=== PATIENT | female | born 1980 | race Caucasian/White ===

== ENCOUNTER → 2024-09-13 13:30 | Outpatient (AMB) | payer OTHER, SELFPAY ==
--- NOTE | 2024-09-13 14:00 | MHC.OFFWIV ---
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 She states that about one-week ago, she had what felt like a calf cramp, however it did not subside quickly, and instead just slowly resolved and dulled in intensity over time. Over the last several days, swelling and tenderness has increased. She denies any injuries, trauma, respiratory issues, fevers, or recent illnesses. Denies any new medications. [facility] Social History Patient Tobacco Use Status: Never used Tobacco Review of Systems Const All systems reviewed & are unremarkable except as noted in HPI and below Physical Exam Vital Signs: Last Vital Signs Pulse 103 H 09/13/24 14:05 BP 128/90 H 09/13/24 14:05 Pulse Ox 98 09/13/24 14:05 Oxygen Delivery Method Room Air 09/13/24 14:05 Const General: cooperative, healthy appearing and no acute distress Nutritional Appearance: obese Limitations: no limitations HEENT Head: Yes normal to inspection Ears: hearing grossly normal bilaterally Resp Effort & Inspection: normal respiratory effort Auscultation: clear to auscultation bilaterally Cardio Rate: regular rate Rhythm: regular rhythm Skin General skin exam: no rashes or lesions noted Extrem Other: Calf circumference right: 50 cm, left: 48cm General: Yes full ROM, Yes capillary refill normal, Yes no joint enlargement, Yes calf tenderness (right, +homans sign right) and Yes edema (nonpitting, RLE) Psych Appearance: grossly normal Mental Status: mental status grossly normal Speech and movement: Normal speech and movement present Assessment & Plan Assessment & Plan (1) Pain and swelling of lower extremity: Code(s): M79.606 - Pain in leg, unspecified; M79.89 - Other specified soft tissue disorders Qualifiers: Laterality: right Qualified Code(s): M79.604 - Pain in right leg; M79.89 - Other specified soft tissue disorders Plan: Ultrasound ordered to rule out DVT on that right LE. Patient will have ultrasound today, and I will follow up once results are received. Discussed with patient indications for this imaging, which she understands. Patient and her aunt who is present at visit both verbalize understanding and agree to plan. Orders: Orders US venous duplex LE RT Today M79.606 - Pain in leg, unspecified, M79.89 - Other specified soft tissue disorders Coding Level of Care Code Est Pt Level 4 (79304) Diagnoses Pain and swelling of right lower extremity M79.604; M79.89 Laterality: right
[2024-09-13 14:05] VITALS: BP 128/90; PULSE 103; O2SAT 98
== END ==
PROVIDERS: PCP Internal Medicine; Visit Provider Nurse Practitioner Family
DX: M79.604 Pain in right leg (principal); M79.89 Other specified soft tissue disorders

== ENCOUNTER → 2024-09-13 13:30 | Outpatient (BNVA) | payer OTHER, SELFPAY | PROVIDERS: PCP Internal Medicine; Visit Provider Nurse Practitioner Family ==

== ENCOUNTER 2024-09-13 14:55 | Outpatient (REF) | payer OTHER, SELFPAY ==
--- NOTE | ~2024-09-13 | US_ITS ---
EXAMINATION: US TRIPLEX LOWER EXTREMITY, RIGHT CLINICAL INFORMATION: Right lower extremity swelling and pain. COMPARISON: None available. TECHNIQUE: Color-flow triplex imaging with spectral analysis and compression Doppler were performed on the right lower extremity. FINDINGS: There is occlusive thrombus which is noncompressible in the right femoral vein, extending through the popliteal vein, to involve the posterior tibial veins and peroneal vein. The common femoral vein and profunda femoral vein are patent. There is no Rodriguez's cyst. US/US venous duplex LE RT IMPRESSION: 1. POSITIVE DVT in the right lower extremity involving the right femoral vein through the popliteal vein to involve the deep calf veins. Technologist informed Dr. Payne from the provider's office at 3:15 PM, 09/13/2024. Patient was advised to proceed to the emergency department for treatment. Electronically signed by: Bishop Quinones MD 09/13/2024 03:32 PM EDT
== END 2024-09-13 14:56 | disposition home or self-care (01) ==
LOC: HO.HMGCX 14:55
PROVIDERS: Visit Provider Nurse Practitioner Family
DX: R60.0 Localized edema (principal); M79.604 Pain in right leg
CPT/HCPCS: 93971

== ENCOUNTER → 2024-09-13 14:58 | Outpatient (BNV) | payer OTHER, SELFPAY | PROVIDERS: Visit Provider Radiology Diagnostic Radiology | DX: I82.411 Acute embolism and thrombosis of right femoral vein (principal); I82.431 Acute embolism and thrombosis of right popliteal vein; I82.461 Acute embolism and thrombosis of right calf muscular vein | CPT/HCPCS: 93971 ==

== ENCOUNTER 2024-09-17 13:12 | Outpatient (AMB) | payer OTHER, SELFPAY ==
--- NOTE | 2024-09-17 13:11 | A.OFFPC_ITS ---
Vital Signs 09/17/24 13:17 09/17/24 14:02 Height 5 ft 4 in Weight 113.398 kg BMI 42.9 BP 118/90 H 128/88 Pulse 94 Temp 98.6 F Temp Source Temporal Artery Scan Pulse Oximetry (%) 97 Oxygen Delivery Method Room Air Intake Visit Reasons: ED [facility] Finished Goods Inspector Required: No Accompanied by: Spouse Allergies No Known Allergies Allergy (Verified 09/17/24 13:16) HPI HPI Comments History of Present Illness Details 43 year old female with history of mild intermittent asthma with class III obesity presents to the office today accompanied by her for ER follow up. She reports that a little over a week ago having a cramping aure horse sensation in the RLE- a tension that wouldn't release. Several days later the pain persisted and was having difficulty walking with increased swelling and re dness in the distal around the ankle. Was seen at urgent care and U/S was ordered confirming presence of extensive occlusive DVT of the femoral vein into the calf veins. No personal history of DVT but reports her maternal grandmother had multiple DVTs and PEs and was on lifelong coumadin. She is unsure if her grandmother underwent workup for clotting disorders. She denies any known personal history of clotting disorders. No recent travel or surgeries. No OCPs in over 10-15 years. Never a smoker. She is morbidly obese and works a sedentary job. She is aware that weight loss efforts should be pursued. Her is reporting noticing snoring and apneic episodes while sleeping in the patient. She tells me she had a URI about a week and a half ago and was using her albuterol inhaler but states only uses this when sick as she was short of breath. However, this has resolved though does still have a dry cough. No palpitations, lightheadednes, or chest pain. No fevers or chills. [facility] Medical History (Updated 09/17/24 @ 14:02 by LOLITA Jaeger) Class III morbid obesity with body mass index (BMI) of 40.0 to 49.9 DVT (deep venous thrombosis) Social History Patient Tobacco Use Status: Never used Tobacco Review of Systems Const All systems reviewed & are unremarkable except as noted in HPI and below Physical exam (Primary Care) Vital Signs: Last Vital Signs Temp 98.6 F 09/17/24 13:17 Pulse 94 09/17/24 13:17 BP 118/90 H 09/17/24 13:17 Pulse Ox 97 09/17/24 13:17 Oxygen Delivery Method Room Air 09/17/24 13:17 BMI result Body Mass Index 42.9 Tobacco/Smoking Status: Tobacco use Status Patient Tobacco Use Status Never used Tobacco 09/17/24 13:12 Coding Level of Care Code New Pt Level 4 (82797) Complex EM visit Add On G2211 Diagnoses DVT (deep venous thrombosis) I82.409 Class III morbid obesity with body mass index (BMI) of 40.0 to 49.9 E66.813 Snoring R06.83 Elevated blood pressure reading R03.0 Assessment & Plan Assessment & Plan (1) DVT (deep venous thrombosis): Code(s): I82.409 - Acute embolism and thrombosis of unspecified deep veins of unspecified lower extremity Category: Medical Plan: ED notes reviewed including provider note, U/S. Continue ELiquis 10mg BID for a total of 7 days, then 5mg BID. Possible factor provoking DVT include morbid obesity and sedentary job. However has positive FH of Multiple DVT and PE in maternal grandmother. Referred to hematology for further evaluation and m anagement and determination of duration of therapy and recommendation for further intervention if indicated. (2) Class III morbid obesity with body mass index (BMI) of 40.0 to 49.9: Code(s): E66.813 - Obesity, class 3 Category: Medical Plan: BMI 42.9. Discussed the importance of weight loss efforts to decrease morbidity. Discussed healthy diet and exercise. To be reassed at follow up visit/annual physical exam. (3) Snoring: Code(s): R06.83 - Snoring Category: Medical Plan: Concern for DELMER. Referred for sleep study. (4) Elevated blood pressure reading: Code(s): R03.0 - Elevated blood-pressure reading, without diagnosis of hypertension Category: Medical Plan: Multiple episodes of uncontrolled diastiolic BP. Repeat BP in the office today 128/88. Will hold on antihypertensive therapy at this time. Continue working on lifestyle modification. Also assess for undiagnosed DELMER. Will reassess at physical exam in several weeks. If BP remains uncontrolled, will initiate antihypertensive agent. Plan Follow up for annual physical exam with labs completed prior to visit. Weight loss efforts encouraged. Referred to heme and for sleep study Orders: Orders RT home sleep study Today R06.83 - Snoring, Z00.00 - Encounter for general adult medical examination without abnormal findings Basic Metabolic Panel Today Z00.00 - Encounter for general adult medical examination without abnormal findings Complete Blood Count Auto Diff Today Z00.00 - Encounter for general adult medical examination without abnormal findings Vitamin D 25-OH Total Today Z00.00 - Encounter for general adult medical examination without abnormal findings Hemoglobin A1c Today Z00.00 - Encounter for general adult medical examination without abnormal findings Lipid Panel Today Z00.00 - Encounter for general adult medical examination without abnormal findings Liver Panel Today Z00.00 - Encounter for general adult medical examination without abnormal findings TSH reflex Free T4 Today Z00.00 - Encounter for general adult medical examination without abnormal findings Referrals Hematology & Oncology Referral I82.409 - Acute embolism and thrombosis of unspecified deep veins of unspecified lower extremity, Z82.49 - Family history of ischemic heart disease and other diseases of the circulatory system
[2024-09-17 13:17] VITALS: BP 118/90; PULSE 94; TEMP 37; O2SAT 97; BMI 42.9
[2024-09-17 14:02] VITALS: BP 128/88
== END 2024-09-17 13:41 | disposition home or self-care (01) ==
LOC: HO.HMCHD 13:12
PROVIDERS: PCP Internal Medicine; Visit Provider Physician Assistant
DX: I82.409 Acute embolism and thrombosis of unspecified deep veins of unspecified lower extremity (principal); E66.813 Obesity, class 3; R06.83 Snoring; R03.0 Elevated blood-pressure reading, without diagnosis of hypertension

== ENCOUNTER → 2024-10-23 11:31 | Outpatient (BNV) | payer OTHER, SELFPAY | PROVIDERS: PCP Internal Medicine; Referring Provider Internal Medicine; Visit Provider Internal Medicine | DX: I82.401 Acute embolism and thrombosis of unspecified deep veins of right lower extremity (principal) | CPT/HCPCS: 99204; G2211 ==

== ENCOUNTER → 2024-12-03 13:51 | Outpatient (REF) | payer OTHER, SELFPAY | LOC: HO.SL 13:51 | PROVIDERS: PCP Internal Medicine; Visit Provider Physician Assistant | DX: G47.33 Obstructive sleep apnea (adult) (pediatric) (principal); R06.83 Snoring; Z00.00 Encounter for general adult medical examination without abnormal findings; G47.13 Recurrent hypersomnia | CPT/HCPCS: 95806 ==

== ENCOUNTER → 2024-12-03 13:58 | Outpatient (BNV) | payer OTHER, SELFPAY | PROVIDERS: PCP Internal Medicine; Visit Provider Internal Medicine | DX: G47.13 Recurrent hypersomnia (principal); R06.83 Snoring | CPT/HCPCS: 95806 ==

== ENCOUNTER 2025-01-07 09:22 | Outpatient (AMB) | payer OTHER, SELFPAY ==
--- NOTE | 2025-01-07 09:26 | A.OFFPC_ITS ---
Vital Signs 01/07/25 09:29 Height 5 ft 4 in Weight 113.398 kg BMI 42.9 BP 112/86 Pulse 99 Pulse Source Pulse Oximeter Temp 98.2 F Temp Source Temporal Artery Scan Pulse Oximetry (%) 97 Oxygen Delivery Method Room Air Intake Visit Reasons: Annual Bearingizer Required: No Accompanied by: Self / Same As Patient Allergies No Known Allergies Allergy (Verified 01/07/25 09:26) Medication List - Last Reconciled 01/07/25 by LOLITA Jaeger albuterol sulfate 90 mcg/actuation 90 mcg inhalation DAILY apixaban (Eliquis) 5 mg PO BID Tobacco use date assessed: 01/07/25 Dental Screening Dental Screen Date: 01/07/25 Did you have a dental visit in the last 12 months?: No Did you have a dental problem in the last 6 months where you did not have access to dental care?: No Was dental information given to patient?: No HPI HPI Comments History of Present Illness Details 43 year old female with history of mild intermittent asthma with class III obesity presents to the office today for management of chronic conditions and for annual physical exam. Works for [employer], 2 days at home and 3 days in the office. No alcohol use. No drug use. No history of cigarette smoking. LLE DVT- Dx 09/2024. U/S was ordered confirming presence of extensive occlusive DVT of the femoral vein into the calf veins. No personal history of DVT but reports her maternal grandmother had multiple DVTs and PEs and was on lifelong coumadin. Following with Hematology. Risk factors include sedentary lifestyle and obesity. She will undergoing thrombophilia testing when she is able to interrupt anticoagulation briefly in a few months hematology recommending full anticoagulation for 6 months, then can be decreased to prophylactic dose. Mild intermittent asthma-no recent exacerbation. Using albuterol inhaler Snoring-sleep study performed 12/16 showing mild obstructive sleep apnea with AHI 7.2. No nocturnal hypoxemia. For now, recommend conservative measures such as weight reduction and position therapy. May consider CPAP in the future if developed and associated comorbid condition. Class III obesity-no formal exercise. Often forgets to eat due to being busy. Concerns: none Health maintenance: Last screening mammogram 11/2024 there was scattered areas of fibroglandular density. Dx mammo and U/S performed and will be requested. Pt reports normal results Due for colonoscopy at age 44 Overdue for PHARMACY AFFAIRS ASSISTANT/pap smear Eye exam every 1-2 years Dentist twice annually Reviewed past medical, surgical, social, family history ROS: General: No fevers, malaise, unintentional weight loss HEENT: No blurred vision, diplopia. No sore throat, nasal congestion, rhinorrhea, sinus pain, ear pain. No hearing loss. Neck - no adenopathy Cardiovascular: No chest pain, palpitations, or leg edema Respiratory: No shortness of breath, wheezing, cough Breast: No pain, palpable lumps, nipple inversion GI: No dysphagia, odynophagia, globus sensation. No abdominal pain, nausea, vomiting, diarrhea, constipation, melena, hematochezia : No dysuria, hematuria, increased urinary frequency, decreased urinary output. PHARMACY AFFAIRS ASSISTANT: No abn vaginal bleeding or discharge MSK: No myalgia, back pain, arthralgias Neuro: No headaches, weakness, paresthesias Psych: no depression/anxiery. No AH/VH. No SI/HI Skin: No rashes or lesions tonsillitis3+, crypts EXAM: Constitutional - Awake and Alert, No apparent distress Eyes - PERRLA, EOMI. Anicteric Ears - external ears normal, canals clear, TMs intact and pearly medellin with good cone of light Nose- septum midline, nares clear, no sinus tenderness Mouth/throat- mucosa moist, tongue and uvula midline, no erythema/edema. 3+ tonsillar enlargement with crypts noted but no stones Neck-trachea midline, thyroid symmetric without palpable nodules, no adenopathy Cardiovascular - S1S2, RRR, No edema Respiratory - Normal lung expansion, Normal respiratory effort, No respiratory distress, CTA bilaterally Gastrointestinal - NT / ND; +BS; No rebound or guarding - No CVA tenderness Extremities - no calf tenderness bilaterally, no swelling Musculoskeletal - Normal inspection, normal ROM Skin - Warm/Dry, no concerning lesions Neurological - Alert & oriented x3, CN II-XII in tact, 5/5 strength BUE and BLE, 2+ patellar reflexes, sensation intact Psychological - Appropriate affect [facility] Medical History (Updated 01/07/25 @ 10:10 by LOLITA Jaeger) Class III morbid obesity with body mass index (BMI) of 40.0 to 49.9 DVT (deep venous thrombosis) Family History Father Diabetes Maternal Grandmother Stroke Paternal Grandfather Heart attack Social History Household Members: Spouse Housing: House Patient Tobacco Use Status: Never used Tobacco e-Cigarette/Vaping Use: Never Used service: No Current occupational status: employed Cognitive needs: No Hearing needs: No Vision needs: No Physical exam (Primary Care) Tobacco/Smoking Status: Tobacco use Status Patient Tobacco Use Status Never used Tobacco 01/07/25 09:27 Coding Level of Care Code Est Pt Prev Care 40-64y(91576) Diagnoses Routine medical exam Z00.00 DVT (deep venous thrombosis) I82.409 Class III morbid obesity with body mass index (BMI) of 40.0 to 49.9 E66.813 DELMER (obstructive sleep apnea) G47.33 Tonsillitis J03.90 Snoring R06.83 Assessment & Plan Assessment & Plan (1) Routine medical exam: Code(s): Z00.00 - Encounter for general adult medical examination without abnormal findings Plan: 44 year old female here for annual exam. Plan as below (2) DVT (deep venous thrombosis): Code(s): I82.409 - Acute embolism and thrombosis of unspecified deep veins of unspecified lower extremity Category: Medical Plan: Continue following with Hematology. Last hematology note reviewed. No evidence of thrombophilia. Continue Eliquis 5 mg twice daily as advised by Hematology (3) Class III morbid obesity with body mass index (BMI) of 40.0 to 49.9: Code(s): E66.813 - Obesity, class 3 Category: Medical Plan: Weight loss efforts encouraged. Discussed healthy diet with emphasis on protein, vegetables, fruit. Avoid refined sugars, simple carbohydrates, highly processed foods. Advised she can do intermittent fasting if interested. Recommend moderate intensity exercise for 150-300 minutes per week (4) DELMER (obstructive sleep apnea): Comment: Mild, weight loss/exercise recommended. No nocturnal hypoxemia Code(s): G47.33 - Obstructive sleep apnea (adult) (pediatric) Category: Medical Plan: Likely multifactorial related to weight but also tonsillitis (5) Tonsillitis: Code(s): J03.90 - Acute tonsillitis, unspecified Category: Medical Plan: 3+. Likely contributing to DELMER. Referred to ENT (6) Snoring: Code(s): R06.83 - Snoring Category: Medical Plan Routine screening labs as ordered below Continue with screening mammograms. Results of diagnostic mammogram/ultrasound requested. Referred to locker room clerk. Colonoscopies to started age 46 Continue following for annual skin exams and use sun protection Annual eye exams Wear seat belt in car Recommend regular exercise and healthy diet as above Follow-up in the office in 1 year for annual exam, sooner as needed Orders: Referrals INSECT CONTROL INSPECTOR Referral Z12.4 - Encounter for screening for malignant neoplasm of cervix Ear/Nose/Throat Referral G47.33 - Obstructive sleep apnea (adult) (pediatric), J03.90 - Acute tonsillitis, unspecified, R06.83 - Snoring Medications: New albuterol sulfate 90 mcg/actuation 90 mcg inhalation DAILY 8.5 grams 1RF Patient Instructions: Routine screening labs as ordered below Continue with screening mammograms, Pap smears, colonoscopies Continue following for annual skin exams and use sun protection Annual eye exams Wear seat belt in car Recommend regular exercise and healthy diet. Recommend moderate intensity exercise 150-300 minutes per week.
[2025-01-07 09:29] VITALS: BP 112/86; PULSE 99; TEMP 36.8; O2SAT 97; BMI 42.9
== END 2025-01-07 10:10 | disposition home or self-care (01) ==
LOC: HO.HMCHD 09:22
PROVIDERS: PCP Internal Medicine; Visit Provider Physician Assistant
DX: Z00.00 Encounter for general adult medical examination without abnormal findings (principal); I82.409 Acute embolism and thrombosis of unspecified deep veins of unspecified lower extremity; E66.813 Obesity, class 3; G47.33 Obstructive sleep apnea (adult) (pediatric); J03.90 Acute tonsillitis, unspecified; R06.83 Snoring